=== PATIENT | female | born 1985 | race Caucasian/White ===

== ENCOUNTER → 2021-11-10 | Outpatient (CLI) | payer BC, OTHER ==
--- NOTE | 2021-11-10 12:34 | RAD ---
AP and Lateral Views of the Chest 11/10/2021 12:27 PM Indication: Cough, upper respiratory infection Comparison: None Findings: There is no focal consolidation or infiltrate identified. The cardiomediastinal silhouette is within normal limits. There is no evidence of pneumothorax or pleural effusion. No acute osseous a bnormalities are identified. Impression: No evidence of acute cardiopulmonary process. Electronically signed by: Jt Gaston MD (11/10/2021 12:31 PM) [id number]
== END ==
LOC: PMG 12:19
PROVIDERS: ATTEND Nurse Practitioner Family
DX: J06.9 Acute upper respiratory infection, unspecified (principal)
CPT/HCPCS: 71046